=== PATIENT | female | born 1950 | race Caucasian/White ===

== ENCOUNTER 2016-08-23 09:31 | Outpatient (CLI) | payer OTHER ==
--- NOTE | 2016-08-23 21:17 | DIAGNOSTIC IMAGING REPORT ---
PROCEDURE: MR LOWER EXT JOINT WO CONT-RT INDICATION: RIGHT MEDIAL KNEE PAIN, OSTEOARTHRITIS TECHNIQUE: T1 and STIR sagittal, axial, coronal and coronal-oblique images. COMPARISON: None. FINDINGS: Mild spur formation of the medial and lateral compartments. Normal collateral and cruciate ligaments. Flap tear of the medial meniscus posterior horn. Complex tear of the body and posterior horn of the lateral meniscus. There is mild chondromalacia the medial and lateral compartments. Normal quadriceps and patellar tendons. Mild chondromalacia patella. Small suprapatellar effusion. No popliteal cyst. IMPRESSION: 1. Medial meniscus posterior horn flap tear 2. Complex tear of the body and posterior horn of the lateral meniscus 3. 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
== END 2016-08-23 23:00 ==
LOC: MRI SRH 09:31
DX: M23.221 Derangement of posterior horn of medial meniscus due to old tear or injury, right knee (principal); M94.261 Chondromalacia, right knee; M23.251 Derangement of posterior horn of lateral meniscus due to old tear or injury, right knee